=== PATIENT | female | born 2000 | race Caucasian/White ===

== ENCOUNTER → 2019-08-02 10:35 | Outpatient (CLI) | payer OTHER, SELFPAY ==
--- NOTE | 2019-08-02 | DI.MRI.S_ITS ---
PROCEDURE: MR KNEE LT W CON INDICATIONS: INJURY OF LEFT KNEE TECHNIQUE: After the administration of 50 mL of dilute intra-articular Gadolinium contrast, sagittal T1 spin echo with fat saturation and PD fast spin echo with fat saturation, coronal T1 spin echo with and without fat saturation, coronal T2 fast spin echo with fat saturation, axial PD fast spin echo with fat saturation through the knee. COMPARISON: None. FINDINGS: Image quality: Excellent. Menisci: The medial and lateral menisci demonstrate normal morphology and internal signal. The meniscal root ligaments appear intact. Cruciate ligaments: There is suggestion of sprain/moderate grade partial-thickness tear involving proximal anterior cruciate ligament near its femoral insertion. No full-thickness ACL rupture. Posterior cruciate ligament is intact. Medial structures: The medial collateral ligament appears intact. The posterior oblique ligament, semimembranosus tendon insertions, oblique popliteal ligament, and meniscocapsular junction appear intact. Visualized portions of the pes anserinus tendons appear normal. No abnormal bursal fluid. Lateral structures: The lateral collateral ligament, long and short heads of the biceps femoris tendon appear intact. The popliteus tendon appears normal; the popliteofibular ligament appears intact. The posterosuperior and anteroinferior popliteomeniscal fascicles appear intact. The arcuate and fabellofibular ligaments appear intact around the lateral inferior geniculate artery. Iliotibial band appears normal. Anterior structures: The quadriceps and patellar tendons appear intact. Patellar alignment is normal. No femoral trochlear dysplasia or ventral trochlear prominence. No edema in the infrapatellar fat pad. Bone and cartilage: Marrow edema involving medial periphery of medial femoral condyle is seen near MCL insertion. There is extensive marrow edema involving weight-bearing portion of lateral femoral condyle as well as posterior portion of the proximal tibia shaft extending to lateral tibial plateau. No definite fracture line is seen. Articulating cartilages and patella cartilage are grossly intact. Joint space: No Zamorano's cyst. Normal appearing synovial plicae are incidentally noted. No intra-articular bodies. IMPRESSION: 1. Attenuated appearance of proximal to mid anterior cruciate ligament suggestive of sprain/moderate grade partial-thickness tear. No full-thickness ACL rupture. PCL is intact. 2. No evidence of focal meniscal tear. 3. Bony contusion involving weight-bearing portion of lateral femoral condyle and adjacent posterior aspect of the proximal tibia extending to lateral tibial plateau. Bony contusion also noted involving medial periphery of medial femoral condyle. No acute fracture or dislocation. Dictated by: Celio Polk M.D. on 08/02/2019 at 15:16 Approved by: Celio Polk M.D. on 08/02/2019 at 15:28
--- NOTE | 2019-08-02 | DI.RAD.S_ITS ---
PROCEDURE: FL KNEE INJECTION MR/CT LT COMPARISON: None. INDICATIONS: INJURY OF LEFT KNEE TECHNIQUE: The indications, alternatives, benefits, risks, and complications of the procedure were explained to the patient. Written informed consent was obtained and placed in the chart. The knee joint was examined fluoroscopically and a site for needle placement chosen. The skin was prepped and draped in a sterile fashion, and 1% Lidocaine infiltrated from skin down to joint capsule. A spinal needle was inserted into the joint, and a small amount of iodinated contrast media injected to confirm intra-articular placement of the needle tip. This was followed by approximately 40 mL dilute solution of a gadolinium containing MR contrast agent. The needle was removed and a dressing was applied. The patient was given postprocedural instructions and sent to the MR suite for imaging. FINDINGS: A single fluoroscopic spot image demonstrates intra-articular location of injected iodinated contrast. IMPRESSION: Successful fluoroscopically guided administration of dilute Gadolinium solution into the knee joint for MR arthrogram. Dictated by: Rolando Ronquillo M.D. on 08/02/2019 at 17:15 Approved by: Rolando Ronquillo M.D. on 08/02/2019 at 17:17
== END ==
PROVIDERS: PCP Nurse Practitioner Family; Referring Provider Nurse Practitioner Family; Visit Provider Nurse Practitioner Family
DX: S80.02XA Contusion of left knee, initial encounter (principal); X58.XXXA Exposure to other specified factors, initial encounter
CPT/HCPCS: 27369; 73722; 77002